=== PATIENT | male | born 1995 | race Hispanic/Latino ===

== ENCOUNTER 2022-08-26 00:31 | Emergency (ER) | payer SELFPAY ==
[~2022-08-26] VITALS: Ht 172.7 cm; Wt 85.0 kg
[~2022-08-26 00:31] MED LIST: AMOXICILLIN/PO500 MG PO; CEPHALEXIN250 MG PO; FLOXIN OTIC0.3 % OT; NO MEDS; ULTRAM50 M1 PO
[2022-08-26 01:23] VITALS: BP 128/82
== END 2022-08-26 01:24 | disposition left against medical advice (07) | DRG 605 ==
LOC: ED 00:31
DX: S61.411A Laceration without foreign body of right hand, initial encounter (principal); W22.09XA Striking against other stationary object, initial encounter; Z53.29 Procedure and treatment not carried out because of patient's decision for other reasons